=== PATIENT | female | born 1995 | race Caucasian/White ===

== ENCOUNTER → 2022-03-19 08:49 | Outpatient (CLI) | payer OTHER, SELFPAY ==
--- NOTE | 2022-03-19 | DI.RAD.S_ITS ---
PROCEDURE: XR FOOT LT MIN 3V INDICATIONS: Pain in unspecified ankle and joints of unspecified foot TECHNIQUE: Three views of the foot were acquired. COMPARISON: None. FINDINGS: Bones: No acute fractures or dislocations. No suspicious bony lesions. Postsurgical changes are seen with a metallic screw in the medial tibia. 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 Dorsal navicular cuneiform spurring is noted. Soft tissues: No suspicious soft tissue calcification. IMPRESSION: 1. Postsurgical changes from prior medial malleolar fracture fixation. 2. Osseous fusion across the 1st tarsometatarsal joint is most likely related to a prior arthrodesis. 3. Focal degenerative changes at the navicular-medial cuneiform articulation. Approved by: Yoshi Neff M.D. on 03/19/2022 at 11:38
== END ==
PROVIDERS: Referring Provider Internal Medicine Cardiovascular Disease; Visit Provider Internal Medicine Cardiovascular Disease
DX: M25.572 Pain in left ankle and joints of left foot (principal); M24.675 Ankylosis, left foot; Z87.81 Personal history of (healed) traumatic fracture
CPT/HCPCS: 73630